=== PATIENT | female | born 1970 | race Caucasian/White ===

== ENCOUNTER 2016-06-14 16:32 | Emergency (ER) | payer MEDICAID, MEDICARE ==
[2016-06-14 16:46] VITALS: BP 110/73; PULSE 57; RESP 20; O2SAT 98
--- NOTE | 2016-06-14 17:05 | ED.REPORT ---
HPI-Headache Date of Service Jun 14, 2016 ED Provider: Jose Pruitt MD This is a 45 year old female with a history of migraines, bipolar disorder, and schizophrenia presenting with intermittent frontal headache that began 4 days ago. Described as dull and throbbing with some radiation to the back. Associated symptoms include diarrhea, nausea, malaise. Denies vomiting, weakness , numbness, change LOC, head trauma, or neck pain. Aleve has not provided relief. Nursing Notes Stated Complaint: HEADACHE Chief Complaint: Headache Nursing Notes Reviewed: Yes Allergies: Coded Allergies: No Known Allergies (Verified , 06/14/16) General Time Seen by MD: 16:42 Chief Complaint Headache Hx Obtained From: Patient Arrived By: Walk-in Sudden in Onset?: Yes Onset Occurred: 1 - 4 hours ago Symptom Duration: Since onset Severity: Current: Moderate Pertinent Negative: Pt denies other symptoms Recent Healthcare: No recent doctor visit, No recent hospitalization Similar Sx Previous: No Past Medical History Past Medical History Bipolar disorder Schizophrenia Past Surgical History Denies Ambulatory Status Independent Review of Systems Constitutional: Denies: Chills, Fever GI: Reports: Diarrhea, Nausea, Denies: Abdominal pain, Vomiting Neurologic: Reports: Headache, Denies: Change LOC, Lightheaded Complete sys rev & neg: except as marked. Physical Exam Initial Vital Signs Vital Signs (First) Date Time Temp Pulse Resp B/P Pulse Ox O2 Delivery O2 Flow Rate FiO2 06/14/16 16:46 35.9 57 20 110/73 98 Room Air Initial VS: Reviewed ENT: Mucous membranes moist, Conjunctiva normal, No scleral icterus Respiratory: Breath sounds normal, Clear to auscultation, No respiratory distress Cardiovascular: Regular rate & rhythm, Heart sounds normal, Intact distal pulses Abdomen / GI: Soft, Non-tender, No guarding, No rebound, No distention Extremities: Vascular intact, Neuro intact, No swelling, No tenderness Skin: Warm, Dry, No cyanosis Psychiatric: Mood/affect normal, Behavior normal, Normal thought content General/Constitutional: Awake, Alert, Well appearing, Well developed Speech normal Head / Eyes: Atraumatic, Normocephalic, PERRL, EOMI, No nystagmus, No periorbital redness, No periorbital swelling, No photophobia, No scleral icterus , Conjunctiva NL Neck: Supple, No meningismus, Full range of motion, No swelling, Non-tender, No masses Neurologic: Oriented X3, Speech NL, No motor deficits, No sensory deficits, CN II - XII intact, Cerebellar NL Normal gait negative romberg Re-Eval/Medical Decision Med Decision/Clinical Course In summary, the patient is a 45-year-old female with past medical history significant for headaches, who presents with headache. Our primary and secondary assessment reveals an awake, alert patient in no acute distress. Hemodynamically stable and afebrile. Exam reveals normal neurologic exam. Suspect the patient's headache represents a migraine or tension type headache. Considered other causes of headache to include: Subdural hemorrhage, subarachnoid hemorrhage, FLIGHT SURGEON tumor, meningitis, encephalitis, venous sinus thrombosis, dissection, temporal arteritis, intracranial hypertension ( psuedotumor cerebri), sinusitis or cervicalgia, although these are less likely based on the history, exam findings as noted above. Based on this, I feel that imaging would be low yield and is not warranted at this time. Discussed the risks and benefits of this with the patient who is in agreement. Also discussed with the patient at length that if symptoms change, worsen, or persist, should return to the ER for reevaluation. They understand and agree with the plan. Given the patient's workup, feel they are safe for discharge. The patient was given IV fluids, Toradol, Reglan and Benadryl for symptom control. Patient reported complete symptom resolution. Serial neurologic violations remained benign. She was discharged good condition. Re-Evaluation/Progress : Time of Eval: 17:49 Re-Evaluation/Progress Note: Re-checked, headache resolved. Discusssed plan for discharge, pt understands and agrees with plan, all questions addressed. Counseled Regarding: Diagnosis, Need for follow-up, When/why to return to ED Discharge & Departure Impression: Primary Impression: Headache Headache type: unspecified Headache chronicity pattern: acute headache Intractability: not intractable Qualified Code: R51 - Headache Additional Impression: History of migraine headaches Disposition: Home Discharge Condition All VS Reviewed: Yes Condition: Stable Patient Instructions: Acute Headache (ED) Additional Instructions: Thank you for seeking care at emergency room. It is difficult for us to make definitive diagnoses in the ED but we believe that you are experiencing a headache. Our primary goal today in the ED was to evaluate you for any life-threatening conditions. Your evaluation was reassuring. You should follow-up with your primary doctor in the next week. You should return to the ED immediately if you develop fevers, vomiting, cough, shortness of breath, chest pain, lightheadedness, weakness or any other concerning signs or symptoms. Thank you for letting us partake in your care today. Referrals: Amanda Aviles (PCP) Scribe Attestation Portions of this note were transcribed by Shanel Gudino. I, Dr. Pruitt personally performed the history, physical exam and medical decision-making; I reviewed and confirmed the accuracy of the information in the transcribed note. Signed by: sreedhar Clemons. 06/14/2016, 17:30. Jose Pruitt MD Jun 14, 2016 17:05 SHANEL GUDINO Jun 14, 2016 17:13
[2016-06-14] MEDS ORDERED: 0.9% Sodium Chloride 1,000 ML IV ONE (17:13)
[2016-06-14] MEDS ORDERED: MetoCLOpramide 5 mg/mL 2 mL Inj IVPUSH ONE (17:15)
== END 2016-06-14 18:03 | disposition home or self-care (01) ==
LOC: EDBD 16:32 → SED 16:32
DX: R51 Headache (principal); R53.81 Other malaise; R19.7 Diarrhea, unspecified; R11.0 Nausea; F31.9 Bipolar disorder, unspecified; F20.9 Schizophrenia, unspecified; Z86.69 Personal history of other diseases of the nervous system and sense organs
CPT/HCPCS: 96361; 96374; 96375; 99284; J1200; J2765; J7030